=== PATIENT | female | born 2000 | race Caucasian/White ===

== ENCOUNTER → 2018-05-30 | Outpatient (CLI) | payer BC | LOC: FIMAGING 10:16 | PROVIDERS: ATTEND Nurse Practitioner Family | DX: R11.0 Nausea (principal) | CPT/HCPCS: 78264; A9541 ==

== ENCOUNTER 2018-07-20 16:14 | Emergency (ER) | payer BC ==
--- NOTE | 2018-07-20 17:08 | EDPHY ---
H & P Time Seen by Provider: 07/20/18 16:40 HPI/ROS: CHIEF COMPLAINT: Can't stop shaking HISTORY OF PRESENT ILLNESS: 17-year-old woman has a history of chronic pain with continuous migraines and back pain. She says that after some type of electric shock therapy for her migraines she started having more tremors in her hands. She presents today with history of fatigue for 4 days and feeling exhausted and then since 4:00 p.m. Of feeling like she can't stop shaking and her hands went a little bit numb. She says the left side of her face hurts and she gets "pain paralysis" which is a dysfunction of the muscles in the left or right side of her face which happens about once a month for the last 3 years. Symptoms moderate not resolving. She went to urgent care was referred here. REVIEW OF SYSTEMS: Eye: no change in vision ENT: no sore throat or ear symptoms Cardiac: no chest pain or syncope. She describes over the last 4 days some intermittent head keller feeling even when she is lying down like she is having near-syncope but no actual fainting. Describes normal oral intake. Pulmonary: no cough or SOB Abdomen: No vomiting or abdominal pain Musculoskeletal: Chronic back pain and chronic bilateral hip pain Skin: no rash or zoster Neuro: Chronic migraine headaches Constitutional: no fever : no urinary symptoms A comprehensive 10 point review of systems is otherwise negative aside from elements mentioned in the history of present illness. PAST MEDICAL HISTORY: As in HPI. She describes the arrhythmia which runs in her family where her heart will "skip a beat" Family history: Negative for malignant dysrhythmia at her age Social history: Student at [employer], denies daily alcohol General Appearance: Alert and conversant, cooperative. Eyes: No scleral icterus. Pupils equal reactive extraocular motion intact no nystagmus. ENT, Mouth: Normal mucous membranes. Respiratory: Normal respiratory effort, breath sounds equal, lungs are clear to auscultation. Cardiovascular: Regular rate and rhythm. Gastrointestinal: Abdomen is soft and non tender. Neurological: Alert, face symmetric, normal motor and sensory in extremities. Normal sensation to light touch in hands. Skin of the hands is normal and motor function and capillary refill is normal. She has a little bit of a resting tremor which is intermittent. She has a little bit of hesitancy with speech but is quite shaky when that happens. At times she will be able to speak completely normally as well. Otherwise normal mentation, not confused, ambulatory. Not ataxic. Skin: Warm and dry, no rashes. No facial vesicles or zoster. Musculoskeletal: No peripheral edema. Psychiatric: Appears anxious to me. Emergency Department course/MDM: I think that acute infection or sepsis is unlikely. Stroke unlikely. I think that seizure is unlikely alcohol or benzodiazepine withdrawal also unlikely. Patient has had previous reaction to Xanax and declined benzodiazepines. Check i-STAT Chem 8, TSH will be pending, patient says she just wants to know the she is not having a dangerous medical problem, does not want any medical therapy for the shaking. We discussed her heart skipping a beat but the patient declined repeat EKG which I think is reasonable as I think malignant dysrhythmia is unlikely. She is referred to the on-call primary physician as no local established care. Does not have evidence of hypoglycemia or electrolyte abnormality or anemia at this time. 1858: TSH normal. Smoking Status: Never smoked Constitutional: Initial Vital Signs Temperature (C) 36.5 C 07/20/18 16:18 Heart Rate 91 07/20/18 16:18 Respiratory Rate 16 07/20/18 16:18 Blood Pressure 149/85 H 07/20/18 16:18 O2 Sat (%) 99 07/20/18 16:18 O2 Delivery Mode Room Air Allergies/Adverse Reactions: No Known Allergies Allergy (Unverified 07/20/18 16:18) Home Medications: Medication Instructions Recorded NK [No Known Home Meds] 07/20/18 MDM/Departure - Depart Disposition: Home, Routine, Self-Care Clinical Impression: Shaking Condition: Good Instructions: Tremors (ED) Additional Instructions: Call [phone] for results of thyroid test; tomorrow. Increase oral fluid intake. Return if you have worsening symptoms or if you pass out, or if dizzy causing difficulty standing. Call the referral primary care doctor for office follow-up this week Referrals: Nadia Peck MD [Medical Doctor] - As per Instructions
[2018-07-20 17:44] VITALS: BP 136/86
== END 2018-07-20 17:44 | disposition home or self-care (01) ==
DX: R25.1 Tremor, unspecified (principal)
CPT/HCPCS: 82435-PO; 82565-PO; 82947-PO; 84132-PO; 84295-PO; 84520-PO; 85014-ER

== ENCOUNTER 2018-07-23 01:34 | Emergency (ER) | payer BC ==
--- NOTE | 2018-07-23 03:09 | EDPHY ---
H & P Stated Complaint: L sided CP/arm/neck pain since 2299 Time Seen by Provider: 07/23/18 02:20 HPI/ROS: HPI The patient presents with chest pain which began about 4 hr ago while she was lying in bed trying to go to sleep. The patient has spread and left-sided, posterior, radiating towards her anterior chest, sharp in nature. Pain has been intermittent. It is not associated with any shortness of breath, coughing , fever, nausea, vomiting, dizziness, diaphoresis. She has never had this pain before. She denies any trauma. She wonders if it is related to her chronic pain. She was in the emergency department a few days ago for weakness and had normal hemoglobin, TSH, basic chemistry testing. REVIEW OF SYSTEMS 10 systems were reviewed and negative with the exception of the elements mentioned in the history of present illness. PMHx: Migraine headaches, chronic pain Soc Hx: College student at [employer] PHYSICAL General Appearance: Alert, no distress Eyes: Pupils equal and round no pallor or injection ENT, Mouth: Mucous membranes moist Respiratory: There are no retractions, lungs are clear to auscultation Cardiovascular: Regular rate and rhythm Gastrointestinal: Abdomen is soft and non-tender, no masses, bowel sounds normal Neurological: A&O, moves all extremities Skin: Warm and dry, left chest wall tenderness throughout anterior, lateral, posterior chest without any point tenderness Musculoskeletal: Neck is supple non tender Extremities: symmetrical, full range of motion Psychiatric: Patient is oriented X 3, there is no agitation Source: Patient Exam Limitations: No limitations - Personal History LMP (Females 10-55): 1-7 Days Ago Current Tetanus/Diphtheria Vaccine: Yes - Medical/Surgical History Hx Asthma: No Hx Chronic Respiratory Disease: No Hx Diabetes: No Hx Cardiac Disease: No Hx Renal Disease: No Hx Cirrhosis: No Hx Alcoholism: No Hx HIV/AIDS: No Hx Splenectomy or Spleen Trauma: No Other PMH: none - Social History Smoking Status: Never smoked Constitutional: Initial Vital Signs Temperature (C) 36.4 C 07/23/18 01:35 Heart Rate 70 07/23/18 01:35 Respiratory Rate 16 07/23/18 01:35 Blood Pressure 125/84 H 07/23/18 01:35 O2 Sat (%) 98 07/23/18 01:35 O2 Delivery Mode Room Air Allergies/Adverse Reactions: No Known Allergies Allergy (Verified 07/23/18 01:38) Home Medications: Medication Instructions Recorded NK [No Known Home Meds] 07/20/18 Medical Decision Making - Diagnostics EKG Interpretation: EKG: Complete interpretation has been separately recorded in the [facility] archive. 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 No prior history of similar though patient does deal with chronic pain frequently. Here, she is well-appearing, has normal vital signs though does have chest wall tenderness. EKG and chest x-ray were unremarkable. She does not want any pain medication while here. She feels comfortable going home, I will refer her to primary care as she does not have a local primary care doctor. Departure - Departure Disposition: Home, Routine, Self-Care Clinical Impression: Chest pain Qualifiers: Chest pain type: unspecified Qualified Code(s): R07.9 - Chest pain, unspecified Condition: Good Instructions: Chest Wall Pain (ED) Additional Instructions: The cause of your chest pain is not entirely clear, could be related to a muscle ache. I have referred you to the on-call outpatient medicine doctor. You can call for a follow-up appointment tomorrow. Please return to the emergency department if your worse in any way. Referrals: Pawel Wallace MD [Medical Doctor] - As per Instructions
[2018-07-23 03:53] VITALS: BP 111/71
--- NOTE | 2018-07-23 06:55 | CPEKG ---
Test Reason : OPEN Blood Pressure : / mmHG Vent. Rate : 054 BPM Atrial Rate : 053 BPM P-R Int : 151 ms QRS Dur : 090 ms QT Int : 443 ms P-R-T Axes : 052 085 059 degrees QTc Int : 420 ms Sinus rhythm Confirmed by Julita aSlcedo ([id number]) on 07/23/2018 6:54:41 AM Referred By: Julita Salcedo Confirmed By:Julita Salcedo
== END 2018-07-23 03:52 | disposition home or self-care (01) ==
DX: R07.9 Chest pain, unspecified (principal)